=== PATIENT | female | born 1980 | race Caucasian/White ===

== ENCOUNTER 2017-02-24 18:18 | Emergency (ER) | payer OTHER ==
[~2017-02-24] VITALS: Ht 177.8 cm; Wt 149.7 kg
[2017-02-24 18:32] VITALS: BP 160/92
[2017-02-24] MEDS ORDERED: ONDANSETRON ODT 4 MG TAB.RAPDIS PO ONE (18:45)
--- NOTE | 2017-02-25 02:04 | ED.ADGEN ---
Past History Past Medical History: Other Past Surgical History: Cholecystectomy, Hysterectomy Alcohol Use: None Drug Use: None Adult General Chief Complaint Chief Complaint Nausea vomiting and diarrhea [facility] HPI Patient is a 36-year-old female presents with nausea vomiting diarrhea. Multiple episodes starting earlier this morning. Patient last vomited 2 hours prior to ED arrival. Diarrhea is described as loose And nonbloody. No hematemesis or coffee-ground emesis. Mild abdominal cramping only diarrhea, no fever, chills or sweats. Patient denies feeling lightheaded or dizzy. Recent GI illness exposure. No other acute symptoms[] Review of Systems Review of Systems ROS as per HPI. [] All other systems were reviewed and found to be within normal limits, except as documented in this note. Current Medications Current Medications Current Medications Medications (Trade) Dose Ordered Sig/Leida Start Time Stop Time Status Last Admin Dose Admin Ondansetron HCl (Zofran Odt) 8 mg 1X ONCE 02/24/17 18:45 02/24/17 18:46 DC 02/24/17 18:45 8 MG Allergies Allergies Allergies Uncoded Allergies Type Severity Reaction Last Updated Verified steriods Allergy Unknown 01/31/15 Physical Exam Physical Exam Constitutional: Well developed, well nourished, no acute distress, non-toxic appearance. [] HENT: Normocephalic, atraumatic, bilateral external ears normal, oropharynx moist, no oral exudates, nose normal. [] Eyes: PERRLA, EOMI, conjunctiva normal, no discharge. [] Neck: Normal range of motion, no tenderness, supple, no stridor. [] Cardiovascular:Heart rate regular rhythm, no murmur [] Lungs & Thorax: Bilateral breath sounds clear to auscultation [] Abdomen: Bowel sounds normal, soft, no tenderness, no masses, no pulsatile masses. [] Skin: Warm, dry, no erythema, no rash. [] Back: No tenderness. [] Extremities: No tenderness, no cyanosis, no clubbing, ROM intact, no edema. [] Neurologic: Alert and oriented X 3, normal motor function, normal sensory function, no focal deficits noted. [] Psychologic: Affect normal, judgement normal, mood normal. [] Current Patient Data Vital Signs Vital Signs Date Time Temp Pulse Resp B/P (MAP) Pulse Ox O2 Delivery O2 Flow Rate FiO2 02/24/17 18:32 97.8 87 18 95 Room Air EKG EKG [] Radiology/Procedures Radiology/Procedures [] Course & Med Decision Making Course & Med Decision Making Pertinent Labs and Imaging studies reviewed. (See chart for details) [Abdomen remains soft, nonsurgical. Vital signs stable. Symptoms improved with treatment. Recommend discharge home, supportive care, watchful waiting and close PCP follow-up. Return precautions reviewed. Patient verbalizes understanding and agreement with discharge instructions prior to departure.] Final Impression Final Impression [1. nausea, vomiting, diarrhea] Problems: Dragon Disclaimer Dragon Disclaimer This electronic medical record was generated, in whole or in part, using a voice recognition dictation system. KAREN CASTANEDA DO Feb 25, 2017 02:04
== END 2017-02-24 19:43 | disposition home or self-care (01) ==
LOC: ER 18:18
DX: R11.2 Nausea with vomiting, unspecified (principal); R19.7 Diarrhea, unspecified; Z90.49 Acquired absence of other specified parts of digestive tract; R10.9 Unspecified abdominal pain; Z90.710 Acquired absence of both cervix and uterus; Z88.8 Allergy status to other drugs, medicaments and biological substances
CPT/HCPCS: 99283; Q0162

== ENCOUNTER 2018-10-06 09:32 | Emergency (ER) | payer SELFPAY ==
[~2018-10-06] VITALS: Ht 177.8 cm; Wt 165.0 kg
[2018-10-06 09:41] VITALS: BP 164/108
--- NOTE | 2018-10-06 09:50 | PHYS DOC ---
Past History Past Medical History: No Pertinent History Past Surgical History: Cholecystectomy, Hysterectomy, Tonsillectomy Smoking: Quit Less Than 1 Year Alcohol Use: None Drug Use: None Adult General Chief Complaint Chief Complaint: COUGH HPI HPI Patient is a 37-year-old female presents complaining of a cough for the past 2 weeks. She has some right flank discomfort when coughing. Uncertain as to whether she is having fever or chills. She has hot flashes from her hysterectomy. These are unchanged. She achieve some temporary relief when taking a friend's unknown nebulizer treatment. No significant improvement with Mucinex. She sometimes coughs so hard that she has vomiting. Otherwise no nausea or vomiting. Denies any chest pain or palpitations. Notes that she is also developed sinus congestion. No sick family members. Symptoms are moderate in intensity. She stopped smoking 3-4 days ago.[] Review of Systems Review of Systems Constitutional: Denies fever or chills [] Eyes: Denies change in visual acuity, redness, or eye pain [] HENT: See history of present illness[] Respiratory: See history of present illness[] Cardiovascular: No chest pain or palpitations[] GI: Denies abdominal pain, nausea, bloody stools or diarrhea [] : Denies dysuria or hematuria [] Musculoskeletal: Denies back pain or joint pain [] Integument: Denies rash or skin lesions [] Neurologic: Denies headache, focal weakness or sensory changes [] Endocrine: Denies polyuria or polydipsia [] All other systems were reviewed and found to be within normal limits, except as documented in this note. Allergies Allergies Allergies Uncoded Allergies Type Severity Reaction Last Updated Verified steriods Allergy Unknown 01/31/15 Physical Exam Physical Exam Constitutional: Well developed, well nourished, no acute distress, non-toxic appearance. [] HENT: Normocephalic, atraumatic, bilateral external ears normal, oropharynx moist, no oral exudates, nose normal. [] Eyes: PERRLA, EOMI, conjunctiva normal, no discharge. [] Neck: Normal range of motion, no tenderness, supple, no stridor. [] Cardiovascular:Heart rate regular rhythm, no murmur [] Lungs & Thorax: Bilateral breath sounds clear to auscultation [] Abdomen: Bowel sounds normal, soft, no tenderness, no masses, no pulsatile masses. [] Skin: Warm, dry, no erythema, no rash. [] Back: No tenderness, no CVA tenderness. [] Extremities: No tenderness, no cyanosis, no clubbing, ROM intact, no edema. [] Neurologic: Alert and oriented X 3, normal motor function, normal sensory fu nction, no focal deficits noted. [] Psychologic: Affect normal, judgement normal, mood normal. [] Current Patient Data Vital Signs Vital Signs Date Time Temp Pulse Resp B/P (MAP) Pulse Ox O2 Delivery O2 Flow Rate FiO2 10/06/18 09:41 97.9 91 16 93 Room Air EKG EKG [] Radiology/Procedures Radiology/Procedures PROCEDURE: CHEST PA & LATERAL CHEST PA LATERAL INDICATION: Cough, chest pain. COMPARISON STUDY: None. FINDINGS: Lungs: Low lung volume. No consolidation. The tracheobronchial tree and hilar structures are normal. Pleura: No pleural effusion or pneumothorax. Heart and Mediastinum: The cardiomediastinal silhouette is normal. The great vessels of the thorax are normal. Bones and Soft Tissues: The bones and soft tissues are within normal limits. IMPRESSION: Low lung volume. No consolidation.[] Course & Med Decision Making Course & Med Decision Making Pertinent Labs and Imaging studies reviewed. (See chart for details) ED course: Patient arrived, was placed in bed, and tolerated exam well. She was given a breathing treatment which didn't cough. She was transported to and from radiology without any complications. After the return of the laboratory and imaging findings, these were discussed with the patient who voiced understanding. All questions were answered. She was discharged in improved condition. Medical decision making: There is no evidence of pneumonia, pneumothorax, nor pulmonary embolism. Do not believe this to be an acute coronary syndrome. No evidence of urinary tract infection or pyelonephritis. We will treat the cough with symptomatic therapy.[] Dragon Disclaimer Dragon Disclaimer This electronic medical record was generated, in whole or in part, using a voice recognition dictation system. Departure Departure: Impression: Primary Impression: Cough Disposition: 01 HOME, SELF-CARE Condition: STABLE Referrals: GRACE MCKEON JR, MD (PCP) Patient Instructions: Cough, Adult Additional Instructions: Drink plenty of fluids. Do not smoke any more. Follow-up with your regular doctor in 2 days. If you do not have a regular doctor list of local clinics will be provided for you. Return to the ER if worsening difficulty breathing or any other concerns. Scripts D-Methorphan Hb/Prometh Hcl (PROMETHAZINE-DM SYRUP) 118 Ml Syrup 5 ML PO PRN Q4HRS for CONGESTION, #120 ML Prov: KM JOHNS DO 10/06/18 Meloxicam (MELOXICAM) 7.5 Mg Tablet 7.5 MG PO DAILY for PAIN, #20 TAB Prov: KM JOHNS DO 10/06/18 Albuterol Sulfate (VENTOLIN HFA INHALER) 18 Gm Hfa.aer.ad 2 PUFF IH PRN Q4HRS PRN for FOR ASTHMA, #1 INHALER 0 Refills Prov: KM JOHNS DO 10/06/18 KM JOHNS DO Oct 06, 2018 09:50
[2018-10-06] MEDS ORDERED: IPRATRPIUM/ALBUTEROL 0.5/2.5MG 3 ML NEBU. NEB ONE (10:15)
--- NOTE | 2018-10-06 10:15 | RAD ---
CHEST PA LATERAL INDICATION: Cough, chest pain. COMPARISON STUDY: None. FINDINGS: Lungs: Low lung volume. No consolidation. The tracheobronchial tree and hilar structures are normal. Pleura: No pleural effusion or pneumothorax. Heart and Mediastinum: The cardiomediastinal silhouette is normal. The great vessels of the thorax are normal. Bones and Soft Tissues: The bones and soft tissues are within normal limits. IMPRESSION: Low lung volume. No consolidation. Electronically signed by: Adalberto Borrero MD (10/06/2018 10:12 AM) [id number]
[2018-10-06 10:17] LABS: CLARITY,URINE HAZY; COLOR,URINE YELLOW; GLUCOSE,URINE NEG (NEG)
[2018-10-06 10:18] LABS: BILIRUBIN,URINE NEG (NEG); NITRITE,URINE NEG (NEG); UROBILINOGEN,URINE 0.2 mg/dL (0.2 mg/dL)
[2018-10-06] MEDS ORDERED: ALBU2.5V8 IH (10:25)
[2018-10-06] MEDS ORDERED: MELO7.5T29 PO (10:25)
[2018-10-06] MEDS ORDERED: PROM118S9 PO (10:25)
== END 2018-10-06 10:29 | disposition home or self-care (01) ==
LOC: ER 09:32
DX: R05 Cough (principal); R50.9 Fever, unspecified; R11.11 Vomiting without nausea; Z87.891 Personal history of nicotine dependence; Z88.8 Allergy status to other drugs, medicaments and biological substances
CPT/HCPCS: 71046; 81003; 94640; 99284; J7620

== ENCOUNTER 2019-09-20 22:55 | Emergency (ER) | payer SELFPAY ==
[~2019-09-20] VITALS: Ht 177.8 cm; Wt 165.0 kg
[~2019-09-20 22:55] MED LIST: ALBU2.5V8 IH; MELO7.5T29 PO; PROM118S10 PO
[2019-09-20] MEDS ORDERED: LIDOCAINE 1%/EPI 1:100,000 20 ML VIAL. IJ ONE (23:30)
[2019-09-20] MEDS ORDERED: OXYC1TAB19 PO ×2 (23:37→23:51)
[2019-09-20] MEDS ORDERED: DOXY100C14 PO (23:37)
--- NOTE | 2019-09-20 23:38 | PHYS DOC ---
Past History Past Medical History: No Pertinent History Past Surgical History: Cholecystectomy, Hysterectomy, Tonsillectomy Smoking: Quit Less Than 1 Year Alcohol Use: None Drug Use: None General Adult EDM: Chief Complaint: ABSCESS HPI: HPI: Patient is a 38-year-old female who presents with a one-week history of a boil to her left inner buttocks. Patient is having severe pain worse with sitting and palpation. Pain is nonradiating. Patient denies abdominal pain or fever. No other complaints. Patient has had abscesses in the past when she was a child but none recently. There is been no drainage from the wound. Patient states this began after standing on concrete for many hours. The pain is described as severe in intensity and throbbing in nature Review of Systems: Review of Systems: Constitutional: Denies fever or chills Eyes: Denies change in visual acuity HENT: Denies sore throat Respiratory: Denies cough or shortness of breath Cardiovascular: Denies chest pain or edema GI: Denies abdominal pain, nausea, vomiting, or diarrhea : Denies dysuria Musculoskeletal: Denies back pain or joint pain Integument: Denies rash Neurologic: Denies headache or focal weakness Psychiatric: Denies depression or anxiety Heart Score: Risk Factors: Risk Factors: DM, Current or recent (<one month) smoker, HTN, HLP, family history of CAD, obesity. Risk Scores: Score 0 - 3: 2.5% MACE over next 6 weeks - Discharge Home Score 4 - 6: 20.3% MACE over next 6 weeks - Admit for Clinical Observation Score 7 - 10: 72.7% MACE over next 6 weeks - Early Invasive Strategies Current Medications: Current Meds: Current Medications Medications (Trade) Dose Ordered Sig/Leida Start Time Stop Time Status Last Admin Dose Admin Lidocaine/ Epinephrine (Xylocaine 1%-Epi 1:100,000) 20 ml 1X ONCE 09/20/19 23:30 09/20/19 23:31 DC Allergies: Allergies: Allergies Coded Allergies Type Severity Reaction Last Updated Verified Corticosteroids (Glucocorticoids) Allergy Intermediate 09/20/19 Yes Physical Exam: PE: Constitutional: Well developed, well nourished, no acute distress, non-toxic appearance. [] HENT: Normocephalic, atraumatic, bilateral external ears normal, no trismus nose normal. [] Eyes: PERRLA, EOMI, conjunctiva normal, no discharge. [] Neck: Normal range of motion, no tenderness, supple, no stridor. [] Cardiovascular: Tachycardia, peripheral pulses intact Lungs & Thorax: No respiratory distress Abdomen: , soft, no tenderness, no masses, no pulsatile masses. [] exam: Clinical Faculty present. Large abscess on the left intergluteal fold ap proximately 1.5 cm from the anus. No extension into the anus or vagina. There is erythema ecchymosis fluctuance and tenderness present Skin: Warm, dry, Back: No tenderness, no CVA tenderness. [] Extremities: No tenderness, no cyanosis, no clubbing, ROM intact, no edema. [] Neurologic: Alert and oriented X 3, normal motor function, normal sensory function, no focal deficits noted. [] Psychologic: Affect normal, judgement normal, mood normal. [] Current Patient Data: Vital Signs: Vital Signs Date Time Temp Pulse Resp B/P (MAP) Pulse Ox O2 Delivery O2 Flow Rate FiO2 7/30/20 23:09 98.2 108 18 136/96 (109) 96 Room Air EKG: EKG: [] Radiology/Procedures: Radiology/Procedures: [] Course & Med Decision Making: Course & Med Decision Making Pertinent Labs and Imaging studies reviewed. (See chart for details) [] After informed consent was obtained the left inergluteal abscess was anesthetized with 1% lidocaine with epinephrine, the skin was prepped with Betadine. An 11 blade was used to make a incision and a large amount of bloody purulent malodorous material was expelled. The abscess was then probed to break up any loculations up abscess was then irrigated with normal saline copiously. The abscess was then packed with gauze. Clinical Faculty was present for the procedure. Patient with a gluteal abscess. No extensions into the anus. Patient is nonfebrile. Abscesses been drained. Patient was placed on antibiotics and pain medicine. Return precautions given. Alyssa Disclaimer: Alyssa Disclaimer: This electronic medical record was generated, in whole or in part, using a voice recognition dictation system. Departure Departure: Impression: Primary Impression: Gluteal abscess Disposition: 01 HOME/RESIDENCE PRIOR TO ADM Condition: STABLE Referrals: GRACE MCKEON JR, MD (PCP) 2 days for packing removal Patient Instructions: Abscess, Abscess, Care After Additional Instructions: EMERGENCY DEPARTMENT GENERAL DISCHARGE INSTRUCTIONS Thank you for coming to the Emergency Department (ED) today and trusting us with you care. We trust that you had a positivie experience in our Emergency Department. YOUR FOLLOW UP INSTRUCTIONS ARE FOLLOWS: 1. Do you have a private Doctor? If you do not have a private doctir, please ask for a resource list of physicians or clinics that may be able to assist you with follow up care. 2. The Emergency Physicain has interpreted your x-rays. The X-Ray specialist will also review them. If there is a change in the findingd, you will be notified in 48 hours when at all possible. 3. A lab test or culture has been done, your results will be reviewed and you will be notified if you need a change in treatment. ADDITIONAL INSTRUCTIONS AND INFORMATION: 1. Your care today has been supervised by a physician who is specially trained in emergency care. Many problems require more than one evaluation for a complete diagnosis and treatment. We recommend that you schedule your follow up appointment as recommended to ensure complete treatment of you illness or injury. If you are unable to obtain follow up care and continue to have a problem, or if your consition worsens, we recommend that you return to the ED. 2. We are not able to safelymdetermine your condition over the phone nor are we able to give sound medical advice over the phone. For these safety reasons, if you call for medical advice we will ask you to come to the ED for further evaluation. 3. If you have any questions regarding these discharge instructions please call the ED at [phone]. SAFETY INFORMATION: In the interest of safety, wellness, and injury prevention; we encourage you to wear your sealbelt, if you smoke; quite smoking, and we encourage family to use a protective helmet for bicycling and other sporting events that present an increased risk for head injusry. IF YOUR SYMPTOMS WORSEN OR NEW SYMPTOMS DEVELOP, OR YOU HAVE CONCERNS ABOUT YOUR CONDITION; OR IF YOUR CONDITION WORSENS WHILE YOU ARE WAITING FOR YOUR FOLLOW UP APPOI NTMENT; EITHER CONTACT YOUR PRIMARY CARE DOCTOR, THE PHYSICIAN WHOSE NAME AND NUMBER YOU WERE GIVEN, OR RETURN TO THE ED IMMEDIATELY. Scripts Doxycycline Monohydrate (Mondoxyne Nl) 100 Mg Capsule 1 CAP PO BID for abscess for 10 Days, #20 CAP 0 Refills Prov: ELIDA BOWIE MD 09/20/19 Oxycodone Hcl/Acetaminophen (PERCOCET 7.5-325 MG TABLET ) 1 Each Tablet 1 TAB PO PRN Q6HRS PRN for PAIN for 3 Days, #12 TAB Prov: ELIDA BOWIE MD 09/20/19 Justification of Admission: Justification of Admission: Justification of Admission Dx: N/A ELIDA BOWIE MD Sep 20, 2019 23:37
[2019-09-20] MEDS ORDERED: DOXY-167 PO (23:51)
[2019-09-21 00:06] VITALS: BP 133/91
== END 2019-09-21 00:01 | disposition home or self-care (01) ==
LOC: ER 22:55
DX: L02.31 Cutaneous abscess of buttock (principal); Z90.49 Acquired absence of other specified parts of digestive tract; Z90.710 Acquired absence of both cervix and uterus; Z87.891 Personal history of nicotine dependence; Z88.8 Allergy status to other drugs, medicaments and biological substances
CPT/HCPCS: 10060; 99283

== ENCOUNTER 2019-09-23 14:31 | Emergency (ER) | payer SELFPAY ==
[~2019-09-23] VITALS: Ht 177.8 cm; Wt 157.9 kg
[~2019-09-23 14:31] MED LIST changes: +DOXY-167 PO; +DOXY100C14 PO; +OXYC1TAB19 PO
[2019-09-23 14:37] VITALS: BP 148/100
--- NOTE | 2019-09-23 15:02 | PHYS DOC ---
Past History Past Medical History: No Pertinent History Past Surgical History: Cholecystectomy, Hysterectomy, Tonsillectomy Smoking: Quit Less Than 1 Year Alcohol Use: None Drug Use: None Adult General Chief Complaint Chief Complaint: WOUND CHECK HPI HPI Patient is a 38-year-old female presents for wound check. She was recently seen and evaluated at our ED and had an I&D performed of left gluteal fold abscess. Patient had wound packed prior to ED departure; however, packing has since fallen out and patient unable to see site due to body habitus and abscess l ocation and was concerned of potential worsening prompting her to visit our ED. In addition, patient has been unable to fill previously prescribed antibiotics due to cost, she reports having enough money and plans to miner pick and start these tomorrow. Patient otherwise feeling well, asymptomatic, pain well controlled, no constitutional symptoms such as fever Review of Systems Review of Systems Fourteen body systems of review of systems have been reviewed. See HPI for pertinent positives and negative responses, other borrero all other systems are negative, non-pertinent or non-contributory Allergies Allergies Allergies Coded Allergies Type Severity Reaction Last Updated Verified Corticosteroids (Glucocorticoids) Allergy Intermediate 09/20/19 Yes Physical Exam Physical Exam Constitutional: Well developed, well nourished, no acute distress, non-toxic appearance. Obese [] HENT: Normocephalic, atraumatic, bilateral external ears normal, oropharynx moist, no oral exudates, nose normal. [] Eyes: PERRLA, EOMI, conjunctiva normal, no discharge. [] Neck: Normal range of motion, no tenderness, supple, no stridor. [] Cardiovascular:Heart rate regular rhythm, no murmur [] Lungs & Thorax: Bilateral breath sounds clear to auscultation [] Abdomen: Bowel sounds normal, soft, no tenderness, no masses, no pulsatile masses. [] Skin: Warm, dry, no erythema, no rash. Founder And Ceo present, visualized patient's left gluteal fold abscess status post I&D, well-appearing, all packaging removed , minimal surrounding erythema without streaking, crepitus, or palpable fluctuant material. No exudate or purulent material expressible. [] Back: No tenderness, no CVA tenderness. [] Extremities: No tenderness, no cyanosis, no clubbing, ROM intact, no edema. [] Neurologic: Alert and oriented X 3, normal motor function, normal sensory function, no focal deficits noted. [] Psychologic: Affect normal, judgement normal, mood normal. [] Current Patient Data Vital Signs Vital Signs Date Time Temp Pulse Resp B/P (MAP) Pulse Ox O2 Delivery O2 Flow Rate FiO2 09/23/19 14:37 97.3 94 16 148/100 (116) 97 Room Air EKG EKG [] Radiology/Procedures Radiology/Procedures [] Course & Med Decision Making Course & Med Decision Making Patient seen on immediate ED arrival by myself Hemodynamically stable, afebrile Patient evaluated, no acute concern for worsening of site of abscess, it appears well-appearing and healing versus initial presentation Encourage patient to continue good hygiene and wound care practices as previously instructed, positive reinforcement given to fill antibiotics tomorrow and take as prescribed in its entirety Strict return precautions discussed with good understanding by patient, all questions and concerns addressed prior to ED departure Dragon Disclaimer Dragon Disclaimer This electronic medical record was generated, in whole or in part, using a voice recognition dictation system. Departure Departure: Impression: Primary Impression: Encounter for wound re-check Additional Impression: Gluteal abscess Disposition: 01 HOME/RESIDENCE PRIOR TO ADM Condition: STABLE Referrals: GRACE MCKEON JR, MD (PCP) Additional Instructions: Return to the Emergency Department if you experience worsening pain, persistent fevers greater than 100.4, an increase in area of redness, increased tenderness/warmth around the abscess, foul smelling discharge from the abscess, or any other concerning symptoms. Justification of Admission: Justification of Admission: Justification of Admission Dx: N/A Problem Qualifiers DANA PENA DO Sep 23, 2019 15:02
== END 2019-09-23 15:07 | disposition home or self-care (01) ==
LOC: ER 14:31
DX: Z48.01 Encounter for change or removal of surgical wound dressing (principal); L02.31 Cutaneous abscess of buttock; Z87.891 Personal history of nicotine dependence; Z88.8 Allergy status to other drugs, medicaments and biological substances
CPT/HCPCS: 99281; 99282

== ENCOUNTER 2020-06-18 11:31 | Emergency (ER) | payer SELFPAY ==
[~2020-06-18] VITALS: Ht 177.8 cm; Wt 150.3 kg
--- NOTE | 2020-06-18 11:42 | PHYS DOC ---
Past History Past Medical History: No Pertinent History Past Surgical History: Cholecystectomy, Hysterectomy, Tonsillectomy Smoking: Quit Less Than 1 Year Alcohol Use: None Drug Use: None Adult General Chief Complaint Chief Complaint: HEADACHE HPI HPI Pt is a 39F presenting for concerns due to migraine. She reports her symptoms began last night for which she took a dose of Excedrin for. She reports she awoke with the headache around 8am this morning. Reports her current symptoms are similar to her previous migraine symptoms, however she is feeling really hot. Reports her pain is constant and begins in her forehead region bilaterally and radiates to her occiput. Also reports some associated photophobia. Pt reports in the past when she has had migraines she takes excedrin and it usually helps her symptoms, however did not get any relief with today's migraine. Reports when her pain began she felt a little SOB, and slightly nauseous. Reports she has never had a cat scan of her head. Admits to a history of T2DM, and HTN and states that she is a smoker, however reports she doesn't take medications or regularly see a PCP for follow up. Review of Systems Review of Systems Fourteen body systems of review of systems have been reviewed. See HPI for pertinent positives and negative responses, other borrero all other systems are negative, non-pertinent or non-contributory Allergies Allergies Allergies Coded Allergies Type Severity Reaction Last Updated Verified Corticosteroids (Glucocorticoids) Allergy Intermediate 09/20/19 Yes Physical Exam Physical Exam Constitutional: Well developed, well nourished, no acute distress, non-toxic appearance. HENT: Normocephalic, atraumatic, bilateral external ears normal, oropharynx moist, no oral exudates, nose normal. Eyes: PERRLA, EOMI, conjunctiva normal, no discharge. Neck: Normal range of motion, no tenderness, supple, no stridor. Cardiovascular: Heart rate regular, sinus rhythm, no murmurs rubs or gallops Lungs & Thorax: Bilateral breath sounds clear to auscultation Abdomen: Bowel sounds normal, soft, no tenderness, no masses, no pulsatile masses. Nonsurgical abdomen, no peritoneal signs Skin: Warm, dry, no erythema, no rash. Back: No tenderness, no CVA tenderness. Extremities: No tenderness, no cyanosis, no clubbing, ROM intact, no edema. Neurologic: Alert and oriented X 3, grossly normal motor & sensory function, no focal deficits noted. CN 2-12 in tact. Equal and bilateral strength in the upper and lower extremity, no signs of cerebellar ataxia. sensation diffusely intact. Normal gait. Psychologic: Affect normal, judgement normal, mood normal. EKG EKG EKG ordered and interpreted by myself at 1212 hrs. as sinus rhythm at 73 bpm, unremarkable intervals, no axis deviation, no acute ischemic findings, no STEMI Radiology/Procedures Radiology/Procedures EXAM: Chest, single view. HISTORY: Chest pain. COMPARISON: 10/06/2018 FINDINGS: A frontal view of the chest is obtained. There is no infiltrate, pleural effusion or pneumothorax. There are suspected bilateral lower lobe atelectasis. The heart is normal in size. IMPRESSION: No acute pulmonary finding. Electronically signed by: Rossy Fernandes MD (06/18/2020 12:07 PM) [id number] DICTATED AND SIGNED BY: ROSSY FERNANDES MD DATE: 06/18/20 1207 Heart Score C/O Chest Pain: No Risk Factors: Risk Factors: DM, Current or recent (<one month) smoker, HTN, HLP, family history of CAD, obesity. Risk Scores: Risk Factors: DM, Current or recent (<one month) smoker, HTN, HLP, family history of CAD, obesity. Course & Med Decision Making Course & Med Decision Making Pt is a 39F here for migraine. Slightly hypertensive on exam and PE including full neuro exam revealed no neuro deficits. Due to lack of medical follow up and being slightly hypertensive on initial presentation cbc, troponin, cxr, cmp, and ekg were obtained. All diagnostic studies were within normal limits. To treat her migraine pt was given 50mg of diphehydramine, 10 mg of compazine, and a liter a fluid. on re-evaluation patient reports symptomatic improvement and a r eturn to baseline. She was given return precautions and told to follow up with her PCP for management of her chronic medical conditions. Pt vocalized understanding of the return precautions provided and agreement with the plan of care. Dragon Disclaimer Dragon Disclaimer This electronic medical record was generated, in whole or in part, using a voice recognition dictation system. Departure Departure: Impression: Primary Impression: Migraine headache Disposition: HOME / SELF CARE / HOMELESS Condition: STABLE Referrals: GRACE MCKEON JR, MD (PCP) Patient Instructions: Migraine Headache Additional Instructions: You were seen for a migraine headache. Your symptoms improved with an NSAID and an anti-nausea medication and gentle fluid hydration. You should return to the ED if you develop worsening pain, vision change, numbness, tingling, weakness, vomiting, fever, neck pain, or any other new or concerning symptoms. You need to follow up with your primary care physician for further evaluation and treatment. As discussed, you might benefit from outpatient neurology follow-up. It was a pleasure to take care of you and I wish you the best going forwarddc DANA PENA DO Jun 18, 2020 11:42
[2020-06-18] MEDS ORDERED: IV NORMAL SALINE 1,000ML 1,000 ML IV ONE (12:00)
[2020-06-18] MEDS ORDERED: diphenhydrAMINE 50 MG/ML VIAL IVP ONE (12:00)
[2020-06-18] MEDS ORDERED: PROCHLORPERAZINE 10 MG/2 ML VIAL. IV ONE (12:00)
[2020-06-18] MEDS ORDERED: ONDANSETRON PF 4 MG/2 ML VIAL. IVP ONE (12:00)
--- NOTE | 2020-06-18 12:09 | RAD ---
EXAM: Chest, single view. HISTORY: Chest pain. COMPARISON: 10/06/2018 FINDINGS: A frontal view of the chest is obtained. There is no infiltrate, pleural effusion or pneumo thorax. There are suspected bilateral lower lobe atelectasis. The heart is normal in size. IMPRESSION: No acute pulmonary finding. Electronically signed by: Rossy Trammell MD (06/18/2020 12:07 PM) [id number]
--- NOTE | 2020-06-18 12:16 | EKG ---
[address] [address] Test Date: 2020-06-18 Test Time: 12:04:10 Pat Name: SONIA EATON Department: Room: Gender: F Seo Manager: SWAPNIL : 1980 Requested By: DANA PENA Order Number: [id number] Reading MD: Measurements Intervals [place] Rate: 73 P: 37 AK: 138 QRS: 31 QRSD: 86 T: 26 QT: 388 QTc: 431 Interpretive Statements SINUS RHYTHM NORMAL ECG RI6.02 No previous ECG available for comparison
[2020-06-18 12:28] LABS: BASO # 0.1 x10^3/uL (0.0-0.2); BASO % 1 % (0-3); EOS # 0.2 x10^3/uL (0.0-0.7); EOS % 3 % (0-3); HEMATOCRIT 44.8 % (36.0-47.0); HEMOGLOBIN 15.6 g/dL (12.0-15.5); LYMPH # 2.2 x10^3/uL (1.0-4.8); LYMPH % 32 % (24-48); MEAN CORPUSCULAR HEMOGLOBIN 34 pg (25-35); MEAN CORPUSCULAR HGB CONC 35 g/dL (31-37); MEAN CORPUSCULAR VOLUME 97 fL (79-100); MONO # 0.4 x10^3/uL (0.0-1.1); MONO % 6 % (0-9); NEUT # 3.9 x10^3uL (1.8-7.7); NEUT % 59 % (31-73); PLATELET COUNT 155 x10^3/uL (140-400); RED BLOOD COUNT 4.63 x10^6/uL (3.50-5.40); WHITE BLOOD COUNT 6.7 x10^3/uL (4.0-11.0)
[2020-06-18 12:45] LABS: CALCIUM 9.3 mg/dL (8.5-10.1); CREATININE 0.7 mg/dL (0.6-1.0); GFR 93.2; POTASSIUM 4.1 mmol/L (3.5-5.1)
[2020-06-18 12:47] LABS: ALBUMIN 3.5 g/dL (3.4-5.0); ALBUMIN/GLOBULIN RATIO 1.1 (1.0-1.7); TOTAL BILIRUBIN 0.3 mg/dL (0.2-1.0); TOTAL PROTEIN 6.7 g/dL (6.4-8.2)
[2020-06-18 13:20] VITALS: BP 134/73
== END 2020-06-18 13:50 | disposition home or self-care (01) ==
LOC: ER 11:31
DX: G43.909 Migraine, unspecified, not intractable, without status migrainosus (principal); Z87.891 Personal history of nicotine dependence; Z88.8 Allergy status to other drugs, medicaments and biological substances
CPT/HCPCS: 36415; 71045; 80053; 84484; 85025; 93005; 96361; 96374; 96375; 99285; J0780; J1200; J2405; J7030

== ENCOUNTER 2020-11-06 08:08 | Emergency (ER) | payer SELFPAY ==
[~2020-11-06] VITALS: Ht 177.8 cm; Wt 150.3 kg
[~2020-11-06 08:08] MED LIST changes: +DOXY-181 PO; -DOXY100C14 PO
[2020-11-06 08:23] VITALS: BP 159/86
--- NOTE | 2020-11-06 08:44 | PHYS DOC ---
Past History Past Medical History: Diabetes, Hypertension, Migraines Past Surgical History: Cholecystectomy, Hysterectomy, Tonsillectomy Smoking: Quit Less Than 1 Year Alcohol Use: None Drug Use: None General Adult EDM: Chief Complaint: ABDOMINAL PAIN HPI: HPI: Patient is a 39 year old female who presents with nausea, vomiting, diarrhea, and abdominal pain. Symptoms started on Tuesday of this week and have become more progressive. Is having 56 stools a day. They are loose, watery. No recent antibiotic use. Has had some episodes of vomiting as well. No blood in her stool or vomit. No fevers or chills. Pain is in the upper abdomen. Described as squeezing in the epigastrium area. Does not radiate. Worse with food. Comes and goes/not constant. Never had similar pain. She works at [employer], and states that some of her coworkers have had similar symptoms at work. Does have a history of cholecystectomy and hysterectomy. No dysuria, urgency, frequency. No hematuria. No vaginal discharge, vaginal bleeding. She does not drink alcohol. Occasional weed. Regular tobacco use/smoking. Review of Systems: Review of Systems: Constitutional: Denies fever or chills Eyes: Denies change in visual acuity HENT: Denies nasal congestion or sore throat Respiratory: Denies cough or shortness of breath Cardiovascular: Denies chest pain or edema GI: Reports abdominal pain, nausea, vomiting, and diarrhea. No bloody stool or bloody emesis. : Denies dysuria Musculoskeletal: Denies back pain or joint pain Integument: Denies rash Neurologic: Denies headache, focal weakness or sensory changes Endocrine: Denies polyuria or polydipsia Lymphatic: Denies swollen glands Psychiatric: Denies depression or anxiety Current Medications: Current Meds: Current Medications Medications (Trade) Dose Ordered Sig/Leida Start Time Stop Time Status Last Admin Dose Admin Ondansetron HCl (Zofran) 4 mg 1X ONCE 11/06/20 08:45 11/06/20 08:46 UNV Sodium Chloride 1,000 ml @ 1,000 mls/hr 1X ONCE 11/06/20 08:45 11/06/20 09:44 UNV Allergies: Allergies: Allergies Coded Allergies Type Severity Reaction Last Updated Verified Corticosteroids (Glucocorticoids) Allergy Intermediate 09/20/19 Yes Physical Exam: PE: Constitutional: Well developed, well nourished, no acute distress, non-toxic appearance. [] HENT: Normocephalic, atraumatic, bilateral external ears normal, oropharynx moist, no oral exudates, nose normal. [] Eyes: PERRLA, EOMI, conjunctiva normal, no discharge. [] Neck: Normal range of motion, no tenderness, supple, no stridor. [] Cardiovascular:Heart rate regular rhythm, no murmur [] Lungs & Thorax: Bilateral breath sounds clear to auscultation [] Abdomen: Mild upper abdominal tenderness to palpation in the midl ine/epigastrium. No RUQ tenderness. No lower abdominal tenderness. [] Skin: Warm, dry, no erythema, no rash. [] Back: No tenderness, no CVA tenderness. [] Extremities: No tenderness, no cyanosis, no clubbing, ROM intact, no edema. [] Neurologic: Alert and oriented X 3, normal motor function, normal sensory function, no focal deficits noted. [] Psychologic: Affect normal, judgement normal, mood normal. [] Current Patient Data: Vital Signs: Vital Signs Date Time Temp Pulse Resp B/P (MAP) Pulse Ox O2 Delivery O2 Flow Rate FiO2 11/06/20 08:23 97.8 81 18 159/86 (110) 97 EKG: EKG: [] Radiology/Procedures: Radiology/Procedures: [] Heart Score: C/O Chest Pain: No Risk Factors: Risk Factors: DM, Current or recent (<one month) smoker, HTN, HLP, family history of CAD, obesity. Risk Scores: Score 0 - 3: 2.5% MACE over next 6 weeks - Discharge Home Score 4 - 6: 20.3% MACE over next 6 weeks - Admit for Clinical Observation Score 7 - 10: 72.7% MACE over next 6 weeks - Early Invasive Strategies Course & Med Decision Making: Course & Med Decision Making Pertinent Labs and Imaging studies reviewed. (See chart for details) Patient a 39-year-old female with history of cholecystectomy and hysterectomy who presents with 4 days of nausea, vomiting, diarrhea, and cramping upper abdominal pain. She works at [employer], and has coworkers that are fighting similar symptoms. She is afebrile, hemodynamically stable on arrival. Heart rate in the 80s Well-appearing on examination and benign abdominal exam. Feel this is most consistent with a gastroenteritis. Will check labs to ensure no pancreatitis or hepatitis. We will give fluids and Zofran. [id number] Labs unremarkable aside from elevated glucose. I have asked that she follows up with her PCP to check for signs of type 2 diabetes which is likely given glucose of 269 and BMI of 47.5 kg/m2. Will prescribe zofran and give instructions for loperamide. Return precautions for worsening pain, intractable n/v, inability to keep down PO, Fever/chills. [id number] Alyssa Disclaimer: Alyssa Disclaimer: This electronic medical record was generated, in whole or in part, using a voice recognition dictation system. Departure Departure: Impression: Primary Impression: Upper abdominal pain Additional Impressions: Nausea & vomiting Diarrhea Disposition: HOME / SELF CARE / HOMELESS Condition: STABLE Referrals: PCP,NO (PCP) If you do not have a PCP, please call the number for the [facility] at [phone]. Patient Instructions: Loperamide tablets or capsules, Viral Gastroenteritis Additional Instructions: Your labs were reassuring aside from an elevated glucose. This is concerning that you may have early onset diabetes. We will be important that you follow-up with a primary care doctor to manage this long-term. There are many complications of poorly managed diabetes, and to reduce the risks of this it is important that you see a doctor in the near future. For your abdominal pain, nausea/vomiting, and diarrhea I think this is most l ikely a viral illness that should improve. Please push fluids and try to stay well-hydrated. For nausea you can take Zofran 4 mg every 4-6 hours. For diarrhea you can buy [id number] loperamide. Loperamide Dosin mg (2 capsules) orally followed by 2 mg (1 capsule) after each unformed stool; MAX 16 mg (8 capsules) per day Please return to the emergency department if you develop fever/chills, worsening pain, intractable vomiting or other worsening of your symptoms. Scripts Ondansetron Hcl (ZOFRAN) 4 Mg Tablet 1 TAB PO Q4-6HRS PRN for NAUSEA, #20 TAB Prov: VICTOR M GLYNN MD 11/06/20 VICTOR M GLYNN MD Nov 06, 2020 08:44
[2020-11-06] MEDS ORDERED: IV NORMAL SALINE 1,000ML 1,000 ML IV ONE (08:45)
[2020-11-06] MEDS ORDERED: ONDANSETRON PF 4 MG/2 ML VIAL. IVP ONE (08:45)
[2020-11-06 09:30] LABS: CALCIUM 9.8 mg/dL (8.5-10.1); CREATININE 0.6 mg/dL (0.6-1.0); GFR 111.3; POTASSIUM 4.1 mmol/L (3.5-5.1)
[2020-11-06 09:31] LABS: BASO # 0.1 x10^3/uL (0.0-0.2); BASO % 1 % (0-3); EOS # 0.2 x10^3/uL (0.0-0.7); EOS % 3 % (0-3); HEMATOCRIT 43.1 % (36.0-47.0); LYMPH # 2.1 x10^3/uL (1.0-4.8); LYMPH % 32 % (24-48); MEAN CORPUSCULAR HEMOGLOBIN 34 pg (25-35); MEAN CORPUSCULAR HGB CONC 35 g/dL (31-37); MEAN CORPUSCULAR VOLUME 96 fL (79-100); MONO # 0.4 x10^3/uL (0.0-1.1); MONO % 7 % (0-9); NEUT # 3.9 x10^3uL (1.8-7.7); NEUT % 58 % (31-73); PLATELET COUNT 169 x10^3/uL (140-400); RED BLOOD COUNT 4.48 x10^6/uL (3.50-5.40); RED CELL DISTRIBUTION WIDTH 13.8 % (11.5-14.5); WHITE BLOOD COUNT 6.8 x10^3/uL (4.0-11.0)
[2020-11-06 09:37] LABS: ALBUMIN 3.7 g/dL (3.4-5.0); ALBUMIN/GLOBULIN RATIO 1.1 (1.0-1.7); TOTAL BILIRUBIN 0.5 mg/dL (0.2-1.0); TOTAL PROTEIN 7.2 g/dL (6.4-8.2)
[2020-11-06] MEDS ORDERED: ONDA4TAB7 PO (09:58)
== END 2020-11-06 10:12 | disposition home or self-care (01) ==
LOC: ER 08:08
DX: J06.9 Acute upper respiratory infection, unspecified (principal); R11.2 Nausea with vomiting, unspecified; R19.7 Diarrhea, unspecified; E11.9 Type 2 diabetes mellitus without complications; I10 Essential (primary) hypertension; Z87.891 Personal history of nicotine dependence; Z90.49 Acquired absence of other specified parts of digestive tract; Z90.710 Acquired absence of both cervix and uterus
CPT/HCPCS: 36415; 80053; 83690; 85025; 96361; 96374; 99283; J2405; J7030